=== PATIENT | male | born 1960 | race Caucasian/White ===

== ENCOUNTER 2025-02-20 16:39 | Inpatient (IN) | payer MEDICARE, SELFPAY ==
[2025-02-20 13:54] VITALS: BP 158/96
--- NOTE | 2025-02-20 15:09 | ED.GENMED ---
History of Present Illness
General
Chief Complaint: Dizziness
Time Seen by Provider: 02/20/25 14:52
Nursing documentation reviewed up to this point in time: agreed with
History of Present Illness
History of Present Illness:
64-year-old male presents the ER for evaluation of double vision and dizziness. Patient is accompanied by his sister who had additional history, including the patient was treated for sinus infection by primary care physician with an antibiotic
which he completed just before . Patient states that he has not had much nasal congestion. He occasionally has ear popping discomfort. No loss of hearing. No fevers. He states that he was at a bar on Thursday watching the game when he
became dizzy. He reports this as a movement type discomfort. He attributed it to having his head turned watching the television screen. He drove home and then on Thursday noticed that he was having double vision. He is having a hard time walking
when he has both of his eyes open, preferentially keeping 1 eye closed. He states that the vision in each eye independently is clear, but when he looks with both eyes he sees double vision in vertical lie. This has been constant since Thursday.
He denies any paresthesias arms and legs. No focal weakness to arms and legs. He denies neck pain. He denies sore throat. He states that he was seen at urgent care yesterday and was initiated on a steroid and an antibiotic for treatment of a
sinus infection. He admits that he has been using Afrin regularly but has not had any improvement in his symptoms. He denies any prior history of hypertension, high cholesterol or diabetes, but admits to smoking 1 pack of cigarettes daily for many
years. He denies headache.
Past History
Past History
ED Past Medical History: None
Social History
Tobacco: Smoker
Review of Systems
Review of Systems
Allergies reviewed?: Yes
Phy Exam
Physical Exam
Physical Exam:
Patient is awake, alert, appears in no acute distress, head is NCAT, PERRL, EOMI however left eye is sluggish in moving and lateral gaze, mucous membranes moist, tympanic membranes are normal bilaterally, external auditory canals also normal
bilaterally, posterior pharynx is clear, no tonsillar asymmetry, no uvular deviation, no stridor, no trismus, patient does have a raspy voice, conjunctiva pink, no carotid bruits, heart regular rate and rhythm without murmurs or ectopy, lungs are
clear to auscultation without wheezes rales or rhonchi, no JVD, abdomen is soft and nontender on palpation, extremities without edema, GCS is 15, patient has difficulty with finger-nose bilaterally, no difficulty with rapid alternating movements,
intact sensation x 4 extremities
NIH Stroke Score
Level of Consciousness: 0 - Alert
LOC questions: 0-Answers both correctly
LOC Commands: 0-Performs both correctly
Best Gaze: 0-Normal
Visual Lovett: 0=Normal, no visual loss
Facial palsy: 0=Normal, symmetrical
Motor - Right Arm: 0=No drift 10 seconds
Motor - Left Arm: 0=No drift 10 seconds
Motor - Right Le-No drift 5 seconds
Motor - Left Le-No drift 5 seconds
Limb Ataxia: 0-Absent
Sensation: 0-Normal
Best Language: 0-No aphasia
Dysarthria: 0-Normal
Extinction and Inattention: 0-No abnormality
Total Score:: 0
Course
Orders/Labs/Results
Orders:
Orders
02/20/25 15:03
Electrocardiogram (*1) Stat
Reason for Study: Other
Other Reason for Exam: neuro symptoms
CT Head W/o Iv Contrast Urgent
Comment: vertical diplopia and vertigo since thursday
Reason For Exam: diplopia
Bedside Glucose- Treatment ONCE
Cardiac Monitoring- Treatment ONCE
EKG- Treatment ONCE
0.9% Sodium Chloride 1000 ml [Nss] 1,000 ml IV BOLUS
Pulse Ox/cont/shift [RESP] Stat
Quantity: 1
02/20/25 15:04
CR Chest - 2 Views Urgent
Comment:
Reason For Exam: cva
02/20/25 15:19
Complete Blood Count/With Diff Urgent
Comprehensive Metabolic Panel Urgent
PTT Urgent
Prothrombin Time Urgent
Troponin I Urgent
02/20/25 15:52
Aspirin 325 mg PO NOW STA
Abnormal Lab Results
02/20/25 02/20/25
15:15 15:19
Abs Immat Gran (auto) 0.1 H 10^3/uL
(0-0.05)
Absolute Neuts (auto) 8.6 H 10^3/uL
(1.4-6.5)
Absolute Lymphs (auto) 0.9 L 10^3/uL
(1.2-3.4)
Immature Gran % 0.6 H %
(0-0.5)
Neutrophils % 88.0 H %
(42.2-75.2)
Lymphocytes % 9.1 L %
(20.5-51.1)
Sodium 134 L mmol/L
(135-145)
Glucose 189 H mg/dl
(70-99)
POC Glucose 175 H mg/dl
(70-99)
02/20/25 15:19
02/20/25 15:19
CBC within normal limits. Electrolytes without significant dyscrasia other than elevated blood sugar, however this is a nonfasting sample.
Vital Signs
Initial and Last Documented VS:
Initial Vital Signs
Temp Pulse Resp BP Pulse Ox
97.7 F 100 16 158/96 97
02/20/25 13:54 02/20/25 13:54 02/20/25 13:54 02/20/25 13:54 02/20/25 13:54
Last Documented Vital Signs
Temp Pulse Resp BP Pulse Ox
97.7 F 100 16 158/96 97
02/20/25 13:54 02/20/25 13:54 02/20/25 13:54 02/20/25 13:54 02/20/25 15:10
MDM/Problems Addressed
Differential Diagnosis Includes:
Differential diagnosis to consider but not limited to intracranial mass, stroke, electrolyte dyscrasia along with other etiologies considered
Chronic conditions affecting care:
Long-term tobacco use, age greater than 50
*Radiology
Radiology exam reviewed: preliminary read by ED provider (I independently viewed and interpreted two-view chest x-ray showing clear lungs, normal cardiac silhouette, await radiology interpretation) and radiology read reviewed (Area of old infarct in
right cerebellum)
*Pulse Oximetry
SaO2: 97
Oxygen Mode of Delivery: Room air
Patient hypoxic: no
*EKG
Interpreted by ED Provider?: Yes (I independently viewed and interpreted twelve-lead EKG showing normal sinus rhythm, rate 98, leftward axis, normal intervals, no ST elevation, this is a normal tracing, similar to prior from 02/01/2016)
*Battery Vent Plug Inserter Interpretation
Rate: normal (I independently viewed and interpreted rhythm strip showing normal sinus rhythm, no ectopy)
*Critical Care Note
Total Time (30-74mins, 75-104mins- exclusive of procedures): Not Applicable
Data Reviewed
Review of Other/Old Records Reveals: Other (I reviewed preoperative H&P from Dr. Tate dated 02/13/16 which is handwritten and somewhat unintelligible)
Update Note
Update Note:
I discussed with patient and sister present bedside my concern for stroke as primary etiology of symptoms. I discussed with him need for CT head and likely admission for further workup given no prior history of stroke. I discussed with him limited
acute treatment options as symptoms have been present for more than 48 hours-he would not be a TNK candidate. Patient expressed understanding of this. Awaiting results for further treatment plan.
1550: Once patient returned from the radiology department, I discussed with him radiology interpretation of CT head showing area of cerebellar infarct. I discussed with patient need for admission for further stroke evaluation and care. He agrees
with plan. Aspirin is ordered. I reviewed full patient presentation with hospitalist who accepts patient for admission.
ED Attending Note
-
Portions of this chart may have been created with voice recognition software.� Occasional wrong word or��sound alike� substitutions may have occurred due to the inherent limitations of voice recognition software.
Discharge Plan
Departure
Patient Disposition: Admit
Date of Disposition: 02/20/25
Time of Disposition: 15:57
Presentation/result/management discussed w/ accepting MD/DO: Hospitalist
Discharge Problem:
Diplopia, Stroke
Prescriptions:
No Action
multivitamin [Multi-Day] 1 EACH tablet
1 tab PO DAILY
cholecalciferol (vitamin D3) [Vitamin D3] 4,000 UNIT capsule
4,000 PO DAILY
Cyclobenzaprine HCl
10 mg PO PRN (Reason: muscle pain)
Fish Oil 1,400 mg Softgel
4,000 mg PO DAILY
Ibuprofen
400 PO DAILY PRN (Reason: pain)
Nicotine Patch
Patient Comments:
off 02/13/16 at 0630
Referrals:
Dov Stout DO [Family Provider, Family Practice]
Interventions
Interventions:
*Risk Screen - Suicide Last Done: 02/20/25 13:54
*General Assessment Last Done: 02/20/25 13:54
*ED COVID-19 Vaccine History Last Done: 02/20/25 13:54
*ED Influenza Vaccine History Last Done: 02/20/25 13:54
Discharge Date and Time
Print Language: CROATIAN
[2025-02-20 15:18] LABS: Glucose - Point of Care 175 mg/dl (70-99)
[2025-02-20 15:25] LABS: Hematocrit 46.6 % (39.0-52.0); Hemoglobin 15.6 g/dL (13.0-18.0); Mean Corp Hgb Conc. 33.5 g/dL (33.0-37.0); Mean Corpuscular Volume 89.8 fL (80.0-94.0); Nucleated Red Blood Cells % 0 % (-); Platelet Count 237 10^3/uL (130-400); Red Cell Dist. Width 13.3 % (11.5-14.5)
[2025-02-20 15:39] LABS: APTT 32.5 Sec (23.4-35.0); INR 1.04; PT 13.8 Sec (11.4-14.6)
[2025-02-20 15:40] LABS: ALT (SGPT) 26 U/L (0-50); AST (SGOT) 19 U/L (17-59); Albumin 4.5 g/dl (3.5-5.0); Alkaline Phosphatase 56 U/L (38-126); Blood Urea Nitrogen 16 mg/dl (9-20); Calcium 9.2 mg/dl (8.4-10.2); Carbon Dioxide 24 mmol/L (22-30); Chloride 104 mmol/L (98-107); Glucose 189 mg/dl (70-99); Potassium 4.6 mmol/L (3.5-5.1); Sodium 134 mmol/L (135-145); Total Protein 7.5 g/dl (6.3-8.2); eGFR > 60.00
[2025-02-20] MEDS: NSS 1000 IV (15:44)
[2025-02-20 15:51] LABS: Troponin I < 0.012 ng/ml
[2025-02-20 16:06] VITALS: BMI 32.9
[2025-02-20] MEDS: ASPIRIN 325 MG PO (16:12)
--- NOTE | 2025-02-20 16:33 | HPS.HSE ---
Addendum entered and electronically signed by Rogelio Vargas MD 02/20/25 16:53:
On further examination appears to have possible cranial nerve palsy 4 of right eye. Lito try eye patch.
Original Note:
Family Physician
-
Family Physician: Dov Stout
Chief Complaint
-
diplopia
History of Present Illness
64-year-old male past medical history of active smoking, presenting with double vision and feeling off balance since yesterday.
He was treated for sinus infection by his primary care physician prior to who initiated Z-Jaswinder for 10 days. He has sinus pressure. He denies nasal congestion. Denies hearing loss. Denies fever. He has been having headache as well.
Since yesterday he has been having double vision described 2 copies on top of each other. Each eye individually is normal and without blurry vision or visual impairment.
He denies any numbness or tingling in the arms or legs. Denies any focal weakness. Denies neck pain. Denies sore throat. He was seen in urgent care yesterday and started on steroid and antibiotic for treatment of sinus infection. He has been
using Afrin regularly but denies any improvement in symptoms.
He had an episode of vertigo 5 to 6 years ago that resolved on its own. He denies any prior history of stroke. Denies eye problems.
He smokes 1 pack of cigarettes per day. He drinks alcohol occasionally.
No family history of strokes.
Medical History
Past Medical History
Past Medical History: Reports Other (active smoking)
Past Surgical History: Reports Other ( Bilateral knee surgery, back surgery,)
Social History
Tobacco: Non-smoker
Alcohol: None
Drug: None
Family History
Family History: Not pertinent
Allergies / Home Medications
Allergies reflects when Allergies were last updated in [facility].
Home Medications with original date entered in [facility]
Allergy/Medication List:
Allergies
Allergy/AdvReac Type Severity Reaction Status Date / Time
No Known Allergies Allergy Verified 02/20/25 13:54
Home Medications
nicotine 21 mg/24 hr daily transdermal patch 1 patch transdermal DAILY 02/13/16
amoxicillin 875 mg-potassium clavulanate 125 mg tablet 1 tab PO BID Infection 02/20/25
aspirin 81 mg tablet,delayed release 81 mg PO Q48H 02/20/25
prednisone 50 mg tablet 50 mg PO DAILY 02/20/25
Review of Systems
-
History Source: Patient
A 12 point ROS was completed and negative except as noted: Yes
Constitutional: Reports No Symptoms
EENT: Reports No Symptoms
Respiratory: Reports No Symptoms
Cardiac: Reports No Symptoms
Abdomen/GI: Reports No Symptoms
: Reports No Symptoms
Musculoskeletal: Reports No Symptoms
Skin: Reports No Symptoms
Neurological: Reports See HPI
Endocrine: Reports No Symptoms
Hematologic/Lymphatic: Reports No Symptoms
Psych: Reports No Symptoms
Physical Exam
Vital Signs
Vital Signs
Temp Pulse Resp BP Pulse Ox
97.7 F 100 16 158/96 97
02/20/25 13:54 02/20/25 13:54 02/20/25 13:54 02/20/25 13:54 02/20/25 15:10
Physical Exam
General: Well Developed, Well Nourished and No Apparent Distress
HEENT: NormoCephalic, Moist mucous membranes and Atraumatic
Respiratory: Clear
Cardiac: S1/S2 and Regular Rhythm; No Murmur or Rub
GI: Soft, Non Tender, Non Distended and Normal Bowel Sounds; No Organomegaly
Rectal: Deferred by Provider
Musculoskeletal: No Clubbing, No Cyanosis and No Edema
Skin: No Rash
Neuro: Nonfocal/grossly intact and Other (slight horizontal nystagmus,)
Laboratory Results
-
02/20/25 15:19
02/20/25 15:19
Laboratory Results
PT 13.8 Sec (11.4-14.6) 02/20/25 15:19
INR 1.04 02/20/25 15:19
APTT 32.5 Sec (23.4-35.0) 02/20/25 15:19
Total Bilirubin 0.9 mg/dl (0.2-1.3) 02/20/25 15:
AST 19 U/L (17-59) 02/20/25 15:
ALT 26 U/L (0-50) 02/20/25 15:
Alkaline Phosphatase 56 U/L (38-126) 02/20/25 15:
Troponin I < 0.012 ng/ml 02/20/25 15:
Data Reviewed
-
Lab Data: Labs Reviewed by me
Old Records: Reviewed
Impression/Plan
-
IMPRESSION:
PLAN:
# Diplopia concerning for cranial nerve palsy versus rule out CVA
- Aspirin given
-Chest x-ray negative
- CT head shows focal area of CSF density within the right cerebral hemisphere suggestive of focal area of old infarction
- Check MRI brain
-Check A1c and lipid panel
-Stop Augmentin and prednisone
- Neurology consulted
Active smoker
-Nicotine patch
Full code
DVT prophylaxis/SCDs
Regular diet
--- NOTE | 2025-02-20 16:48 | CM ---
Chart reviewed. Spoke with and at ED bedside
They live in [place] and [facility]
Son just had a baby today at [facility], their 5th grandchild
They plan to stay here till New Year's
Patient lives in [address] with [address] with
no DME
Independent
getting worked up for old? CVA vs TIA
PCP Dov Stout
RX plan yes
Pharmacy [facility] in [place]
no hx of VN nor SNF
DCP is to go home with services based on neurology eval?
can drive him home
CM will continue to follow up for any dcp needs
[2025-02-20 18:00] VITALS: BP 154/100
--- NOTE | 2025-02-20 18:22 | PTCARENOTE ---
Received pt from ED via stretcher. Pt ambulated to bed independently. Eye patch present right eye. No complaints of pain. Assessed and oriented to room. at bedside. Verbalized understanding of call hooper. Call hooper within close reach.
[2025-02-20 18:24] VITALS: BP 142/82
[2025-02-20 19:15] VITALS: BP 160/73
[2025-02-20 19:48] LABS: HDL Cholesterol 57 mg/dl; LDL Cholesterol, Calculated 163 mg/dl; Very Low Density Lipoprotein 16 mg/dl (0-30)
[2025-02-20 23:20] VITALS: BP 169/85
[2025-02-21 03:20] VITALS: BP 166/93
[2025-02-21 07:00] VITALS: BP 139/80
[2025-02-21 07:26] LABS: Hematocrit 44.1 % (39.0-52.0); Hemoglobin 14.7 g/dL (13.0-18.0); Mean Corp Hgb Conc. 33.3 g/dL (33.0-37.0); Mean Corpuscular Volume 90.6 fL (80.0-94.0); Nucleated Red Blood Cells % 0 % (-); Platelet Count 210 10^3/uL (130-400); Red Cell Dist. Width 13.4 % (11.5-14.5)
[2025-02-21 07:26] LABS: Glycohemoglobin (HgbA1c) 6.1 % (4.0-5.9)
[2025-02-21] MEDS: ATIVAN 1 MG PO (07:38)
[2025-02-21 07:49] LABS: Blood Urea Nitrogen 14 mg/dl (9-20); Calcium 8.9 mg/dl (8.4-10.2); Carbon Dioxide 28 mmol/L (22-30); Chloride 106 mmol/L (98-107); Estimated Creatinine Clearance 106 ml/min; Glucose 105 mg/dl (70-99); Potassium 4.5 mmol/L (3.5-5.1); Sodium 138 mmol/L (135-145); eGFR > 60.00
--- NOTE | 2025-02-21 08:14 | CON.NEURO ---
Addendum entered and electronically signed by César Anna MD 02/21/25 13:29:
Studies reviewed.
I have personally examined the patient. I reviewed and agree with the REAL ESTATE MANAGEMENT SPECIALIST's Note.
My addenda:
Awake, alert, interactive. No acute distress.
Speech intact.
Follows 2-step requests w/o difficulty. No tremor.
Extra-ocular movements grossly intact.
Facial movements full and symmetric. Hearing intact to normal conversational volume.
Normal UE movements bilaterally.
Neck: full ROM.
Chest: no dyspnea
Heart: no JVD
Ext: (-) Clubbing, (-) Cyanosis, (-) Edema
IMPRESSIONS/RECOMMENDATIONS:
Abrupt onset of double vision and ataxia with ambulation
Patient has evidence of a chronic right cerebellar sizable stroke probably from 5 years ago by history. MRI of brain also demonstrates acute ischemic lesion in the left inferior cerebellar peduncle most likely producing the patient's 4th nerve
palsy on the left
Provide aspirin and clopidogrel for 21 days then aspirin daily
Provide atorvastatin
Tobacco cessation
Check CTA head and neck
Goal of normoglycemia
Goal of normotension
Consider echocardiogram due to the patient's relatively young age and lack of numerous risk factors
D/W patient
All questions answered.
Will continue to follow as outpatient.
Original Note:
Documented by User: Janet Lopez NP 02/21/25 09:59
Neuro Assessment/Plan
Assessment
Patient is a 64-year-old male presented to [facility] on 02/20/2025 for evaluation of double vision and dizziness.
Head CT: Focal area of CSF density within the right cerebellar hemisphere as described. The appearance is highly suggestive of a focal area of old infarction. No evidence for acute intracranial abnormality by CT.
Brain MRI: Acute/subacute infarct involving the left inferior cerebellar peduncle. Small, old infarcts of the right cerebellum. Mild to moderate paranasal sinus mucosal disease.
Labs: Hgb A1C 6.1, Cholesterol 236, LDL 163
Differential: acute ischemic left cerebellar infarct
Plan
-check MRI brain without contrast to evaluate for stroke
-check CTA head and neck
-start ASA 81mg and clopidogrel 75 mg daily for 21 days followed by monotherapy with aspirin
-goal LDL <70, current LDL 163, please start the patient on atorvastatin 80 mg by mouth daily at bedtime
-consider an echocardiogram given age <70.
-PT/OT evaluations
-PM&R
-continue neurochecks and NIHSS per unit guidelines
-stroke education to be provided
-smoking cessation advised
All questions encouraged and answered, plan of care discussed with Dr. Anna and patient
Consultation
Order
Date of Consultation: 02/21/25
Requesting Provider: hospitalist/ Dr. Vargas
Reason for Consult: diplopia and dizziness
Subjective/Objective
Subjective Data
Date of Service: February 21, 2025
Patient is a 64-year-old male presented to [facility] on 02/20/2025 for evaluation of double vision and dizziness. He states that he was at a bar on Thursday watching the game when he became dizzy. He attributed it to having his head turned watching the
television screen thought he had vertigo. He notes he had vertigo in the past about 5 years ago which was self limiting. Thursday noticed double vision while driving. Thursday he went to Urgent Care and was given antibiotics, took first dose Thursday
night. Decided yesterday to come to ED to be evaluated. Denies loss of hearing or fevers. He is having a hard time walking when he has both of his eyes open, preferentially keeping 1 eye closed. He states that the vision in each eye independently
is clear, but when he looks with both eyes he sees double vision in vertical lie. This has been constant since Thursday. He denies any paresthesias arms and legs. No focal weakness to arms and legs. He denies neck pain. He denies sore throat.
He admits that he has been using Afrin regularly but has not had any improvement in his symptoms. He denies any prior history of hypertension, high cholesterol or diabetes, but admits to smoking 1 pack of cigarettes daily for many years. He denies
headache. In ED, initial NIHSS 0 therefore not a TNK candidate. CT head shows focal area of CSF density within the right cerebral hemisphere suggestive of focal area of old infarction. Currently on exam, experiencing blurry vision but no diplopia.
Patient with positive Romberg and balance issues.
Objective Data
Vital Signs
Temp Pulse Resp BP Pulse Ox
97.7 F 78 18 166/93 97
02/21/25 03:20 02/21/25 03:20 02/21/25 03:20 02/21/25 03:20 02/21/25 03:20
Lab Results
02/21/25 06:51
02/21/25 06:51
PT 13.8 Sec (11.4-14.6) 02/20/25 15:19
INR 1.04 02/20/25 15:19
APTT 32.5 Sec (23.4-35.0) 02/20/25 15:19
Sodium 138 mmol/L (135-145) 02/21/25 06:51
Potassium 4.5 mmol/L (3.5-5.1) 02/21/25 06:51
BUN 14 mg/dl (9-20) 02/21/25 06:51
Glucose 105 mg/dl (70-99) H 02/21/25 06:51
Calcium 8.9 mg/dl (8.4-10.2) 02/21/25 06:51
LDL Cholesterol, Calc Cancelled 02/20/25 18:21
Patient Allergies
No Known Allergies Allergy (Verified 02/20/25 13:54)
CVA Assessment
NIH Stroke Score
Level of Consciousness: 0 - Alert
LOC Questions: 0-Answers both correctly
LOC Commands: 0-Performs both correctly
Best Horizontal Gaze: 0-Normal
Visual Lovett: 0=Normal, no visual loss
Facial Palsy: 0=Normal, symmetrical
Motor - Right Arm: 0=No drift 10 seconds
Motor - Left Arm: 0=No drift 10 seconds
Motor - Right Le-No drift 5 seconds
Motor - Left Le-No drift 5 seconds
Limb Ataxia: 0-Absent
Sensation: 0-Normal
Best Language: 0-No aphasia
Dysarthria: 0-Normal
Extinction and Inattention: 0-No abnormality
NIH Total Score:: 0
Tenecteplase Contraindications
Inclusion and Exclusion criteria reviewed: Yes
IAT Contraindications: NIHSS < 6
Modified [place] Score (MRS)
-
Modified [place] Scale (mRS): No significant disability. Able to carry out usual activities.
Score: 1
Review of Systems
-
History Source: Patient
Constitutional: No Symptoms
EENT: Blurry Vision (and diplopia)
Respiratory: No Symptoms
Cardiac: No Symptoms
Abdomen/GI: No Symptoms
Genitourinary: No Symptoms
Musculoskeletal: No Symptoms
Skin: No Symptoms
Neuro: Dizzy
Endocrine: No Symptoms
Hematologic / Lymphatic: No Symptoms
Allergy / Immunology: No Symptoms
Physical Exam
-
General: No Apparent Distress and Comfortable
HEENT: Normocephalic and Atraumatic
Neck: Full Range of Motion and Other (head tilt to left)
Respiratory: No Dyspnea
Cardiac: No JVD
GI: Non-distended
Skin: Unremarkable
Extremities: No Clubbing and No Edema
Psych: Unremarkable
Extended Neurological Exam
Mood & Affect: Mood Unremarkable
Attention Span & Concentration: Awake, Alert, Interactive and No Difficulty with 2 Step Request
Memory: Unremarkable
Speech: Quality Unremarkable, Quantity Unremarkable and Rate of Production Unremarkable
Cranial Nerve II: Left Eye: Visual Lovett Grossly Intact
Cranial Nerve II: Right Eye: Visual Lovett Grossly Intact
Cranial Nerves III, IV, : Extraocular Movement: Other (upgaze restriction on let )
Cranial Nerve VIII: Hearing: Unremarkable Hearing to Normal Conversational Volume
Muscle Strength, Overall: Full Throughout
Muscle Bulk & Tone: Bulk Unremarkable and Tone Unremarkable
Pronator Drift: No Drift in Upper Extremities and No Drift in Lower Extremities
Gait & Station: Romberg Test Positive
Data Reviewed
-
CT-A: Ordered
CT Head: Report Reviewed and Image Reviewed
MRI Head: Report Reviewed and Image Reviewed
Medical Test Reports: Report Reviewed
Labs: Report Reviewed
Lipid Profile: Report Reviewed
HgbA1C: Report Reviewed
Reviewed with: Physician and Patient
Old Records: Summarized
Medications
-
Active Medications
Generic Name Dose Route Start Last Admin
Trade Name Freq PRN Reason Stop Dose Admin
Aspirin 81 mg 02/22/25 16:00
Aspirin 81 Mg (Enteric Coated) Tablet PO 03/22/25 15:59
Q48H AINSLEY
Atorvastatin Calcium 80 mg 02/21/25 18:00
Atorvastatin (Lipitor) 80 Mg Tablet PO 03/21/25 17:59
QPM AINSLEY
Clopidogrel Bisulfate 75 mg 02/21/25 09:00
Clopidogrel 75 Mg Tablet PO 03/21/25 08:59
DAILY AINSLEY
Nicotine 21 mg 02/21/25 08:00
Nicotine 21 Mg Patch TRANSDERM 03/21/25 07:59
DAILY AINSLEY
Sodium Chloride 0 flush 02/20/25 19:00
Sodium Chloride 0.9% (Flush) Syringe IV 03/20/25 18:59
PER PROTOCOL AINSLEY
Thiamine HCl 100 mg 02/21/25 08:00
Thiamine 100 Mg Tablet PO 02/23/25 08:01
DAILY AINSLEY
Home Medications
�Medication �Instructions �Recorded
nicotine 21 mg/24 hr daily 1 patch transdermal DAILY 02/13/16
transdermal patch
amoxicillin 875 mg-potassium 1 tab PO BID Infection 02/20/25
clavulanate 125 mg tablet
aspirin 81 mg tablet,delayed 81 mg PO Q48H 02/20/25
release
prednisone 50 mg tablet 50 mg PO DAILY 02/20/25
Past History
Past History
ED Past Medical History: None
Family/Social History
Tobacco: Smoker

Documented by User: César Anna MD 02/21/25 13:21
CVA Assessment
NIH Stroke Score
NIH Total Score:: 0
Modified [place] Score (MRS)
-
Score: 1
Past History
Past History
ED Past Medical History: CVA
[2025-02-21 08:45] LABS: Hepatitis C Antibody Negative (Negative)
[2025-02-21] MEDS: PLAVIX 75 MG PO (09:10)
[2025-02-21] MEDS: VITAMIN B1 100 MG PO (09:10)
[2025-02-21] MEDS: NICODERM TRANSDERMAL 21 MG TRANSDERM (09:10)
[2025-02-21 09:38] LABS: C-Reactive Protein 7.00 mg/L (0.0-10.00)
[2025-02-21 10:44] LABS: Folate > 20.0 ng/ml (2.76-20); Vitamin B12 575 pg/ml (239-931)
[2025-02-21 11:00] VITALS: BP 135/71
--- NOTE | 2025-02-21 14:07 | W.PN.UPDATE ---
Update Note
Progress Note Update
Seen and examined the patient with the resident. Agree with plan of care, see changes in my documentation
64-year-old male presented with diplopia and feeling off balance. He was treated for sinus infection prior to Thanksgiving and completed Z-Jaswinder.
MRI of the brain-focal CSF density in the right cerebellar hemisphere possibly old infarction.MRI- Acute/subacute infarct involving the left inferior cerebellar peduncle. Small, old infarcts of the right cerebellum.Mild to moderate paranasal sinus
mucosal disease.
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 No significant narrowing of the left VA or basilar artery. Calcification of the carotid bulbs and proximal ICA bilaterally. No evidence of
hemodynamically significant stenosis. No significant narrowing of the intracranial anterior circulation.
CVS: S1-S2 normal
Chest: CTA B/L
Abdomen: Soft, NT / Bowel sounds present
Extremities: No edema, normal pulses
ASSEMBLER PIANO: Gait unstable-patient deviates towards the left
Cerebellar signs noted on the left upper extremity
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
Strength 5/5 UE and LE
Reflexes equal B/L LE
# Diplopia from CVA
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
Left cerebellar stroke
Continue Aspirin , Plavix, and Statin
CTA head and neck ordered
Check ECHO
Neurochecks and NIH scale
Monitor on telemetry
PT OT evaluation. Eye Patch for symptoms
Neurology consulted- appreciated.
# Active smoker-cessation counseling-nicotine patch for withdrawal symptoms
# Diverticulosis
# DVT prophylaxis-Lovenox
# Full code
Physiatry eval
Part of this note was created using voice recognition system. Occasional wrong word or��sound alike� substitutions may have inadvertently occurred due to the inherent limitations of voice recognition software. If noted kindly bring it to my
attention for correction.
[2025-02-21 15:00] VITALS: BP 131/79
--- NOTE | 2025-02-21 16:04 | W.PN.HOSP.TC ---
Today's Communication/Plan
-
- Neurology following
- Physiatry consulted
- Continue statin, Plavix, aspirin per neuro recs
- Neurochecks/NIH scale
- PT OT consulted
Assessment / Plan
Assessment / Plan
Patient is a 64-year-old male who presented with diplopia and feeling off balance.
#Diplopia from CVA
- Left cerebellar stroke
- Left inferior oblique palsy
- Patient started on aspirin, Plavix, statin by neurology
- Neurology following
- CT head and neck
- Echo ordered
- Neurochecks and NIH scale
- Monitor on telemetry
- PT OT evaluation
- Physiatry consult for ambulatory dysfunction
#Active smoker
- [id number] smoking history
- Cessation counseling
- Nicotine patch for withdrawal symptoms
Full code
DVT PPx�Lovenox
Diet regular
Anticipated Discharge: 24 - 48 hours
Subjective/Interval History
-
Date of Service: February 21, 2025
Patient seen this morning sitting up in his chair. Patient states that he is still experiencing diplopia with a mild headache. Patient also notes that he is having ambulatory dysfunction, and leaning to the left with his head from when he walks.
Patient stated that this for started on Thursday night while he was at a bar watching the [employer] game. Patient denies chest pain, shortness of breath, nausea, vomiting, changes in bowel movements. Patient states his appetite is good and plans on
ordering breakfast soon.
Objective Data
-
Labs:
Laboratory Results
02/21/25
06:51
WBC 9.5
Hgb 14.7
Hct 44.1
Plt Count 210
Sodium 138
Potassium 4.5
Chloride 106
Carbon Dioxide 28
BUN 14
Creatinine 0.8
Glucose 105 H
Calcium 8.9
Vital Signs:
Vital Signs
Temp Pulse Resp BP Pulse Ox
98.9 F 83 18 131/79 96
02/21/25 15:00 02/21/25 15:00 02/21/25 15:00 02/21/25 15:00 02/21/25 15:00
I&O
02/20/25 02/21/25 02/22/25
06:59 06:59 06:59
Intake Total 240 / 240
Balance 240 / 240
Review of Systems
-
History Source: Patient
Constitutional: Reports No Symptoms
EENT: Reports Blurry Vision and Other (Diplopia)
Respiratory: Reports No Symptoms
Cardiac: Reports No Symptoms
Abdomen/GI: Reports No Symptoms
Genitourinary: Reports No Symptoms
Musculoskeletal: Reports No Symptoms
Skin: Reports No Symptoms
Neuro: Reports Headache
Endocrine: Reports No Symptoms
Hematologic / Lymphatic: Reports No Symptoms
Allergy / Immunology: Reports No Symptoms
Physical Exam
-
General: Well Developed, Well Nourished, No Apparent Distress and Comfortable
HEENT: Normocephalic, Atraumatic and Moist Mucous Membranes
Respiratory: Clear to Auscultation
Cardiac: Regular Rhythm and S1/S2
GI: Soft, Nontender and Nondistended
Musculoskeletal: No Edema
Skin: Warm and Dry
Neuro: Awake, Alert, Oriented, No Motor Deficits and Other (Cerebellar deficits noted in left upper extremity. Left inferior oblique palsy)
Psych: Calm
[2025-02-21] MEDS: LOVENOX 40 MG SC (17:04)
[2025-02-21] MEDS: LIPITOR 80 MG PO (17:04)
[2025-02-21 19:43] VITALS: BP 141/77
[2025-02-21] MEDS: MELATONIN 5 MG PO (22:18)
[2025-02-21 23:43] VITALS: BP 155/84
[2025-02-22 02:59] VITALS: BP 145/81
[2025-02-22 06:47] LABS: Hematocrit 43.0 % (39.0-52.0); Hemoglobin 14.5 g/dL (13.0-18.0); Mean Corp Hgb Conc. 33.7 g/dL (33.0-37.0); Mean Corpuscular Volume 90.7 fL (80.0-94.0); Platelet Count 204 10^3/uL (130-400); Red Cell Dist. Width 13.3 % (11.5-14.5)
[2025-02-22 07:00] VITALS: BP 150/88
[2025-02-22 07:45] LABS: Blood Urea Nitrogen 17 mg/dl (9-20); Calcium 8.9 mg/dl (8.4-10.2); Carbon Dioxide 25 mmol/L (22-30); Chloride 107 mmol/L (98-107); Estimated Creatinine Clearance 106 ml/min; Glucose 93 mg/dl (70-99); Potassium 4.3 mmol/L (3.5-5.1); Sodium 137 mmol/L (135-145); eGFR > 60.00
[2025-02-22] MEDS: NICODERM TRANSDERMAL 21 MG TRANSDERM (08:14)
[2025-02-22] MEDS: PLAVIX 75 MG PO (08:15)
[2025-02-22] MEDS: VITAMIN B1 100 MG PO (08:15)
[2025-02-22 09:54] VITALS: BP 154/83; PULSE 80; O2SAT 97
[2025-02-22 11:00] VITALS: BP 129/74
--- NOTE | 2025-02-22 14:16 | W.PN.HOSP.TC ---
Addendum entered and electronically signed by Tori Davenport MD 02/22/25 16:00:
Seen and examined the patient with the resident. Agree with plan of care, see changes in my documentation
64-year-old male presented with diplopia and feeling off balance. He was treated for sinus infection prior to Thanksgi and completed Z-Jaswinder.
MRI of the brain-focal CSF density in the right cerebellar hemisphere possibly old infarction.MRI- Acute/subacute infarct involving the left inferior cerebellar peduncle. Small, old infarcts of the right cerebellum.Mild to moderate paranasal sinus
mucosal disease.
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 No significant narrowing of the left VA or basilar artery. Calcification of the carotid bulbs and proximal ICA bilaterally. No evidence of
hemodynamically significant stenosis. No significant narrowing of the intracranial anterior circulation.
CVS: S1-S2 normal
Chest: CTA B/L
Abdomen: Soft, NT / Bowel sounds present
Extremities: No edema, normal pulses
BREASTFEEDING PROGRAM COORDINATOR: Gait better today, still has unsteadiness e-patient deviates towards the left
Cerebellar signs noted on the left upper extremity, better today
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
# Diplopia from CVA
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
Left cerebellar stroke
Continue Aspirin , Plavix for 21 days, and Statin
CTA head and neck noted as above. 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
ECHO noted without any embolic source
Neurochecks and NIH scale
Monitor on telemetry-no arrhythmia
PT OT evaluation. Eye Patch for symptoms
Neurology consulted
# Active smoker-cessation counseling-nicotine patch for withdrawal symptoms
# Diverticulosis
# DVT prophylaxis-Lovenox
# Full code
Physiatry eval awaited
Patient was advised not to drive until cleared by occupational therapy. Patient states that his will be driving him
He will need PT and Occupational Therapy as outpatient. Patient declined speech therapy outpatient
Possible discharge today
Part of this note was created using voice recognition system. Occasional wrong word or��sound alike� substitutions may have inadvertently occurred due to the inherent limitations of voice recognition software. If noted kindly bring it to my
attention for correction.
Original Note:
Today's Communication/Plan
-
- PT/OT today
- Physiatry consult, pending rehab recommendations
Assessment / Plan
Assessment / Plan
Patient is a 64-year-old male who presented with diplopia and feeling off balance.
#Diplopia from CVA
- Left cerebellar stroke
- Left inferior oblique palsy
- Patient started on aspirin, Plavix, statin by neurology
- Neurology following
- CT head and neck
- Echo ordered
- Neurochecks and NIH scale
- Monitor on telemetry
- PT OT evaluation today
- Physiatry consult for ambulatory dysfunction, pending recommendations for outpatient rehab
#Active smoker
- [id number] smoking history
- Cessation counseling
- Nicotine patch for withdrawal symptoms
Full code
DVT PPx�Lovenox
Diet regular
Anticipated Discharge: Within 24 hours
Subjective/Interval History
-
Date of Service: February 22, 2025
Patient seen this morning sitting up in chair. Patient states that he thinks that his balance and walking have improved. He thinks that his vision has improved slightly being able to focus on objects close to his face and only seeing 1 image.
Patient still has diplopia when looking further than 2 feet beyond his face.
Objective Data
-
Labs:
Laboratory Results
02/22/25 02/22/25
06:14 06:15
WBC 8.2
Hgb 14.5
Hct 43.0
Plt Count 204
Sodium 137
Potassium 4.3
Chloride 107
Carbon Dioxide 25
BUN 17
Creatinine 0.8
Glucose 93
Calcium 8.9
Vital Signs:
Vital Signs
Temp Pulse Resp BP Pulse Ox
98.4 F 76 18 129/74 98
02/22/25 11:00 02/22/25 11:00 02/22/25 11:00 02/22/25 11:00 02/22/25 11:00
I&O
02/21/25 02/22/25 02/23/25
06:59 06:59 06:59
Intake Total 240 / 240 820 / 820
Balance 240 / 240 820 / 820
Review of Systems
-
History Source: Patient
Constitutional: Reports No Symptoms
EENT: Reports No Symptoms Reported
Respiratory: Reports No Symptoms
Cardiac: Reports No Symptoms
Abdomen/GI: Reports No Symptoms
Genitourinary: Reports No Symptoms
Musculoskeletal: Reports No Symptoms
Skin: Reports No Symptoms
Neuro: Reports Headache, Ataxia and Other (Diplopia)
Endocrine: Reports No Symptoms
Hematologic / Lymphatic: Reports No Symptoms
Allergy / Immunology: Reports No Symptoms
Physical Exam
-
General: Well Developed, Well Nourished, No Apparent Distress and Comfortable
HEENT: Normocephalic, Atraumatic and Moist Mucous Membranes
Respiratory: Clear to Auscultation
Cardiac: Regular Rhythm
GI: Soft, Nontender and Nondistended
Musculoskeletal: No Edema
Skin: Warm and Dry
Neuro: Awake, Alert, Oriented and Other (Gait mildly ataxic, improved. Improved yokoxl-[id number] testing. Improved extraocular eye movements)
Psych: Calm
[2025-02-22 15:00] VITALS: BP 147/84
[2025-02-22] MEDS: ASPIR LOW (ENTERIC COATED) 81 MG PO (15:01)
--- NOTE | 2025-02-22 15:03 | PTOTSP ---
[facility] Evaluation
Patient at risk for cognitive linguistic changes due to acute left cerebellar stroke and chronic right cerebellar stroke. Blind MOCA 8.1 Malay converted score = 19/30 concerning for a mild cognitive linguistic impairment. Points lost for
attention, language, abstraction, and delayed recall. Patient reported changes are baseline. He declined [facility] evaluation at the outpatient level but in agreement to follow with outpatient OT (recommended this admission). Consider further cognitive
linguistic testing and functional tasks with OT at the outpatient level. Add on [facility] services as needed if patient in agreement.
No dysphagia observed. Patient is appropriate to continue a regular, thin liquid diet.
--- NOTE | 2025-02-22 15:17 | CM ---
Addendum entered by Nayeli Melvin 02/23/25 08:19:
IMM explained & signed. In chart
Original Note:
Patient seen at bedside
ST eval today
PT/OT rec outpatient therapy
physiatry consulted - patient states he does not want acute rehab 'wants to go home'
PLAN: Home with outpatient therapy when stable, will need script
[2025-02-22] MEDS: LOVENOX SC (17:05)
[2025-02-22] MEDS: LIPITOR 80 MG PO (17:05)
--- NOTE | 2025-02-22 18:20 | W.DCSUMMARY ---
Discharge Summary
Discharge Data
Date of Admission: 02/20/25
Date of Discharge: 02/22/25
-
Pending Results: No
Hospital Course
Primary diagnosis: Cerebral stroke, diplopia due to CVA
Secondary diagnosis: Former smoker
Hospital course:
Patient is a 64-year-old male with PMH significant for former smoking with [id number]-clax history. Patient states that he started to notice changes in his vision and lightheadedness on Thursday night while watching the [employer] game. Patient then 'felt
off for the whole weekend and went to urgent care on Thursday where they prescribed him a antibiotic and prednisone for possible sinus infection. On Thursday night patient noticed that his vision changed and he had diplopia. When the vision did not
correct the next day, patient presented to [facility]. In the ED patient had a CT of the head which showed a focal area of CSF density within the right cerebellar hemisphere suggestive of a focal area of old infarction. Chest x-ray is unremarkable.
Orbit x-ray was unremarkable. Patient was admitted for further workup. Neurology was consulted.
The next morning patient got a brain MRI which indicated acute/subacute infarct involving the left inferior cerebellar peduncle. Small old infarcts in the right cerebellum. Patient also had a head/neck CTA which indicated moderate hypoplasia of
the right vertebral artery compared to the left. No significant narrowing of the intracranial anterior circulation. Patient was started on statin, aspirin, clopidogrel. Throughout admission patient was experiencing diplopia and ataxia when
walking. PT/OT and physiatry were consulted. Patient's ataxia and finger-nose test improved over the course of admission. Patient will be discharged with a prescription for outpatient physical therapy and Occupational Therapy. We discussed
strict driving restrictions with the patient until cleared by occupational therapy.
Patient will be discharged home today.
Imaging:
02/20/2025: Head CT
IMPRESSION:
Focal area of CSF density within the right cerebellar hemisphere as described. The appearance is highly suggestive of a focal area of old infarction.
No evidence for acute intracranial abnormality by CT.
02/20/2025: Chest x-ray
FINDINGS:
There is no parenchymal opacification or vascular congestion. The cardiomediastinal silhouettes are within the limits of normal. There is no pneumothorax, pleural effusion or mediastinal shift.
IMPRESSION:
No acute cardiopulmonary process
02/20/2025: Orbit x-ray
IMPRESSION:
No evidence of metallic orbital radiopaque foreign body
02/21/2025: Brain MRI
IMPRESSION:
Acute/subacute infarct involving the left inferior cerebellar peduncle.
Small, old infarcts of the right cerebellum.
Mild to moderate paranasal sinus mucosal disease.
02/21/2025: Head and neck CTA
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
Significantly diminished flow signal within the V4 portion of the right vertebral artery, uncertain whether this is congenital or acquired, with no comparison examination available.
No significant narrowing of the left vertebral artery or the basilar artery. No significant narrowing of the posterior cerebral arteries.
Calcification of the carotid bulbs and proximal internal carotid arteries bilaterally, with no evidence for hemodynamically significant stenosis.
No significant narrowing of the intracranial anterior circulation.
Foci of decreased density within the right cerebellar hemisphere, corresponding to regions of old infarction on MRI of the brain obtained this same day.
Percent stenosis is calculated using NASCET criteria.
If the patient has emphysema, patient should be assessed for an annual low dose lung cancer CT program, as pulmonary emphysema is an independent risk factor for lung cancer.
Discharge Plan
-
Patient Disposition: Home (Routine Discharge)
Discharge Diagnosis/Procedures: Diplopia from cerebrovascular accident
Left cerebellar stroke
Smoking
Condition: Good
Diet: Low Fat and Low Cholesterol
Activity: With assistance and As tolerated
Driving Restrictions: No driving until cleared by occupational therapy
Blood Work: Lipid panel and LFTs in 3 months
Other Services: PT and OT
Activity Restrictions/Additional Instructions:
Please follow-up with PT and Occupational Therapy as an outpatient including cognitive linguistic therapy. Prescription provided. Please avoid driving until cleared by occupational therapy.
Prescriptions provided for new medications including aspirin, clopidogrel, statin.
Referrals:
César Anna MD [Active, Neurology] - in two to three weeks
Dov Stout DO [Family Provider, [facility]]
Additional Discharge Medication Instructions: Plavix to be taken for 20 more days. You need to continue with aspirin for the rest of your life.
Prescriptions:
New
atorvastatin 80 mg Tablet
80 mg PO QPM 30 Days Qty: 30 0RF
clopidogrel 75 mg Tablet
75 mg PO DAILY 20 Days Qty: 20 0RF
(DME) PT and OT
See Rx Instructions .Route .MEDSUPPLY Qty: 1 0RF
Rx Instructions:
Dx: diplopia from CVA, left cerebellar stroke
Physical Therapy and Occupational Therapy. Please evaluate and treat.
Please send notes to PCP.
Continued
nicotine 21 mg/24 hr Patch 24 Hour
1 patch TRANSDERMAL DAILY
Changed
aspirin 81 mg Tablet,Delayed Release (Dr/Ec)
81 mg PO DAILY Qty: 0 0RF
Discontinued
prednisone 50 mg Tablet
50 mg PO DAILY
Rx Instructions:
for 7 days starting 02/19/25
amoxicillin-pot clavulanate [Augmentin] 875-125 mg Tablet
1 tab PO BID
Rx Instructions:
for 7 days starting 02/19/25
Discharge Orders:
Discharge Patient (As Directed); Ordered 02/22/25
Ordered By: Barb German
Discharge Date and Time
Discharge Date/Time: 02/22/25 18:23
Print Language: BULGARIAN
== END 2025-02-22 18:23 | disposition home or self-care (01) | DRG 66 ==
LOC: 3 WEST ACU 16:39
PROVIDERS: ADMITTING PHYSICIAN Hospitalist; ATTENDING PHYSICIAN Hospitalist; CONSULT PHYSICIAN Psychiatry & Neurology Neurology; EMERGENCY PHYSICIAN Emergency Medicine; FAMILY PHYSICIAN Family Medicine
DX: I63.542 Cerebral infarction due to unspecified occlusion or stenosis of left cerebellar artery (principal); F17.210 Nicotine dependence, cigarettes, uncomplicated; H49.10 Fourth [trochlear] nerve palsy, unspecified eye; Z86.73 Personal history of transient ischemic attack (TIA), and cerebral infarction without residual deficits; Z79.82 Long term (current) use of aspirin; R29.700 NIHSS score 0
CPT/HCPCS: 70030; 70450; 70496; 70498; 70551; 71046; 80048; 80053; 80061; 82607; 82746; 82962; 83036; 84443; 84484; 85025; 85027; 85610; 85652; 85730; 86140; 86803; 92523; 93005; 93306; 97116; 97162; 97167; 99285; Q9967

== ENCOUNTER → 2025-03-17 09:23 | Outpatient (REF) | payer MEDICARE, SELFPAY | LOC: HWRAD 09:23 | PROVIDERS: ATTENDING PHYSICIAN Family Medicine | DX: E04.1 Nontoxic single thyroid nodule (principal) | CPT/HCPCS: 76536 ==